=== PATIENT | female | born 1950 | race Caucasian/White ===

== ENCOUNTER 2018-06-24 06:20 | Emergency (ER) | payer MEDICARE, BC | END 2018-06-24 07:36 | disposition home or self-care (01) | LOC: FTE 06:20 | DX: M54.5 Low back pain (principal); I10 Essential (primary) hypertension; Z96.642 Presence of left artificial hip joint | CPT/HCPCS: 99283 ==

== ENCOUNTER 2018-08-18 01:12 | Emergency (ER) | payer MEDICARE, BC ==
[2018-08-18] MEDS: CEFTRIAXONE 1 GM INJ IM (01:47)
== END 2018-08-18 01:50 | disposition home or self-care (01) ==
LOC: E/R 01:12
DX: N64.4 Mastodynia (principal); N64.59 Other signs and symptoms in breast; I10 Essential (primary) hypertension; Z96.642 Presence of left artificial hip joint
CPT/HCPCS: 96372; 99284-25